=== PATIENT | female | born 1950 | race Caucasian/White ===

== ENCOUNTER 2022-06-11 18:14 | Emergency (ER) | payer MEDICAID, OTHER ==
[~2022-06-11] VITALS: Ht 149.9 cm; Wt 54.5 kg
[2022-06-11 18:39] VITALS: BP 123/63
[2022-06-12 00:39] LABS: BASOPHILS % 0.6 % (0.0-2.0); EOSINOPHILS % 0.6 % (0.0-5.0); HEMATOCRIT. 41.6 % (36.0-48.0); HEMOGLOBIN. 13.7 g/dL (12.0-16.0); LYMPHOCYTES % 19.7 % (20.0-50.0); MEAN CORPUSCULAR HEMOGLOBIN 27.6 pg (28.0-32.0); MEAN PLATELET VOLUME 9.5 fl (7.4-10.4); NEUTROPHILS % 73.1 % (40.0-76.0); PLATELET 286 x1000/uL (130-400); RED BLOOD CELL COUNT 4.95 mill/uL (4.2-5.4); RED CELL DISTRIBUTION WIDTH 16.2 % (11.6-14.6)
[2022-06-12 01:00] LABS: CHLORIDE 104 mEq/L (98-107)
[2022-06-12] MEDS ORDERED: SODIUM CHLORIDE 0.9% 100 ML IV ONE (01:00)
[2022-06-12] MEDS ORDERED: ONDA4TAB50 MT (01:27)
[2022-06-12] MEDS ORDERED: ONDANSETRON HCL 4MG/2ML INJ IV ONE (01:30)
== END 2022-06-12 02:30 | disposition home or self-care (01) ==
LOC: ER 18:14
DX: E11.65 Type 2 diabetes mellitus with hyperglycemia (principal); R11.0 Nausea; E78.00 Pure hypercholesterolemia, unspecified; I10 Essential (primary) hypertension
CPT/HCPCS: 36415; 80053; 82962; 83735; 85025; 96374; 99283; J2405; J7050; Z7610